=== PATIENT | female | born 1985 | race Caucasian/White ===

== ENCOUNTER 2022-08-28 22:49 | Emergency (ER) | payer SELFPAY ==
[~2022-08-28] VITALS: Ht 167.6 cm; Wt 80.0 kg
[2022-08-28 22:58] VITALS: BP 123/78
== END 2022-08-29 04:24 | disposition left against medical advice (07) ==
LOC: ER 22:50
DX: R10.9 Unspecified abdominal pain (principal); Z53.21 Procedure and treatment not carried out due to patient leaving prior to being seen by health care provider